=== PATIENT | female | born 1975 | race Caucasian/White ===

== ENCOUNTER 2017-01-27 08:45 | Inpatient (IN) | payer BC, MEDICAID ==
[~2017-01-27] VITALS: Ht 152.4 cm; Wt 67.2 kg
[2017-01-27] MEDS ORDERED: SODIUM CHLORIDE 0.9% 1,000 ML IV ONE (09:12)
[2017-01-27] MEDS ORDERED: ONDANSETRON HCL 4MG/2ML VIAL IV STA (09:12)
[2017-01-27 09:34] LABS: BASOPHILS % 0.4 % (0.0-2.0); EOSINOPHILS % 0.9 % (0.0-5.0); HEMATOCRIT. 37.4 % (36.0-48.0); HEMOGLOBIN. 12.3 g/dL (12.0-16.0); LYMPHOCYTES % 30.7 % (20.0-50.0); MEAN CORPUSCULAR HEMOGLOBIN 23.7 pg (28.0-32.0); MONOCYTES % 5.5 % (2.0-8.0); NEUTROPHILS % 62.5 % (40.0-76.0); PLATELET 233 x1000/uL (130-400); RED BLOOD CELL COUNT 5.19 mill/uL (4.2-5.4); RED CELL DISTRIBUTION WIDTH 18.3 % (11.6-14.6)
[2017-01-27 09:43] LABS: PARTIAL THROMBOPLASTIN TIME 22.6 sec (24.0-34.0); PROTHROMBIN TIME 10.8 sec
[2017-01-27 09:44] LABS: HCG SCREEN NEGATIVE
[2017-01-27 09:58] LABS: CARBON DIOXIDE 24 mEq/L (21-32); CHLORIDE 101 mEq/L (98-107); CREATINE KINASE 29 IU/L (26-192)
[2017-01-27] MEDS ORDERED: SODIUM CHLORIDE 0.9% 10ML VIAL ONE (10:00)
[2017-01-27] MEDS ORDERED: IOHEXOL-300 100 ML BOTTLE ONE (10:00)
[2017-01-27] MEDS ORDERED: ONDANSETRON HCL 4MG/2ML VIAL IV ONE (10:15)
[2017-01-27] MEDS ORDERED: DEXAMETHASONE 10 MG/ML VIAL IV ONE (10:15)
[2017-01-27] MEDS ORDERED: LEVETIRACETAM 500MG PREMIX 100 ML IV ONE (10:15)
[2017-01-27 10:55] LABS: CLARITY URINE CLEAR (CLEAR); COLOR URINE YELLOW (YELLOW); KETONES URINE NEGATIVE (NEGATIVE); LEUKOCYTE ESTERASE URINE NEGATIVE (NEGATIVE); NITRITE URINE NEGATIVE (NEGATIVE); OCCULT BLOOD URINE NEGATIVE (NEGATIVE); PROTEIN URINE NEGATIVE (NEGATIVE); SPECIFIC GRAVITY URINE 1.014 (1.005-1.030); UROBILINOGEN URINE 0.2 E.U./dL (0.2-1.0)
[2017-01-27] MEDS ORDERED: NICARDIPINE 50 MG in SODIUM CHLORIDE 0.9% 230 ML IV PRN (13:00)
[2017-01-27] MEDS: DEXAMETHASONE 4MG/ML 1ML VIAL IV SCH ×2 (13:35→18:26)
[2017-01-27] MEDS: DEXT 5%/LACTATED RINGERS 1,000 ML IV SCH (13:42)
[2017-01-27] MEDS ORDERED: PHENYTOIN SODIUM 100MG/2ML VIAL IV SCH (14:00)
[2017-01-27] MEDS ORDERED: IPRATROPIUM/ALBUTEROL 0.5-3(2.5)MG/3ML NEB INH PRN (14:15)
[2017-01-27] MEDS ORDERED: ACETAMINOPHEN 325MG TABLET PO PRN (14:15)
[2017-01-27] MEDS ORDERED: ONDANSETRON HCL 4MG/2ML VIAL IV PRN (14:15)
[2017-01-27 17:20] LABS: CARBON DIOXIDE 28 mEq/L (21-32); CHLORIDE 101 mEq/L (98-107)
[2017-01-27] MEDS: LEVETIRACETAM 500 MG in SODIUM CHLORIDE 0.9% 100 ML IV SCH (21:19)
[2017-01-28] MEDS: DEXAMETHASONE 4MG/ML 1ML VIAL IV SCH ×3 (00:14→11:45)
[2017-01-28 00:36] LABS: CREATINE KINASE 31 IU/L (26-192); TROPONIN I < 0.02 ng/mL (0.00-0.04)
[2017-01-28 04:58] LABS: HEMATOCRIT. 36.5 % (36.0-48.0); HEMOGLOBIN. 11.9 g/dL (12.0-16.0); LYMPHOCYTES % 9.2 % (20.0-50.0); MEAN CORPUSCULAR HEMOGLOBIN 23.6 pg (28.0-32.0); MEAN CORPUSCULAR VOLUME 72.7 fL (81.0-99.0); MEAN PLATELET VOLUME 7.7 fl (7.4-10.4); MONOCYTES % 1.3 % (2.0-8.0); NEUTROPHILS % 89.5 % (40.0-76.0); PLATELET 259 x1000/uL (130-400); RED BLOOD CELL COUNT 5.02 mill/uL (4.2-5.4); RED CELL DISTRIBUTION WIDTH 17.9 % (11.6-14.6)
[2017-01-28 05:17] LABS: CREATINE KINASE 27 IU/L (26-192); HDL CHOLESTEROL 47 mg/dL (40-59); LDL CHOLESTEROL 125 mg/dL (5-100); T4 FREE 1.03 ng/dL (0.76-1.46); TROPONIN I < 0.02 ng/mL (0.00-0.04)
[2017-01-28] MEDS: DEXT 5%/LACTATED RINGERS 1,000 ML IV SCH ×2 (06:36→22:35)
[2017-01-28] MEDS: LEVETIRACETAM 500 MG in SODIUM CHLORIDE 0.9% 100 ML IV SCH (09:05)
[2017-01-28] MEDS ORDERED: NICARDIPINE 100 MG in SODIUM CHLORIDE 0.9% 60 ML IV PRN (09:45)
[2017-01-28] MEDS: BLOOD SUGAR DIAGNOSTIC STRIP TEST SCH ×3 (11:30→20:44)
[2017-01-28] MEDS ORDERED: DEXTROSE 50% WATER 50ML SYRINGE IV PRN (11:30)
[2017-01-28] MEDS: INSULIN LISPRO 100 UNITS/ML SUBCUT SCH ×3 (11:45→21:53)
[2017-01-28] MEDS: LEVETIRACETAM 500MG TABLET PO SCH (21:37)
[2017-01-28] MEDS: FAMOTIDINE 20MG TABLET PO SCH (21:37)
[2017-01-28] MEDS: DEXAMETHASONE 4MG TABLET PO SCH (21:38)
[2017-01-29] MEDS: BLOOD SUGAR DIAGNOSTIC STRIP TEST SCH ×2 (07:01→11:56)
[2017-01-29] MEDS: INSULIN LISPRO 100 UNITS/ML SUBCUT SCH ×2 (07:08→12:05)
[2017-01-29] MEDS: LEVETIRACETAM 500MG TABLET PO SCH (08:46)
[2017-01-29] MEDS: FAMOTIDINE 20MG TABLET PO SCH (08:46)
[2017-01-29] MEDS: DEXAMETHASONE 4MG TABLET PO SCH (08:46)
[2017-01-29] MEDS ORDERED: INSULIN LISPRO 100 UNITS/ML SUBCUT ONE (12:30)
[2017-01-29] MEDS ORDERED: INSULIN LISPRO 100 UNITS/ML SUBCUT SCH (13:15)
[2017-01-29] MEDS: DEXT 5%/LACTATED RINGERS 1,000 ML IV SCH (14:00)
[2017-01-29 16:38] VITALS: BP 127/87
== END 2017-01-29 17:30 | disposition home or self-care (01) | DRG 100 ==
LOC: ER 08:46 → EDBEDREQ 10:04 → MICUSO 10:21 → EDBEDREQSVC 10:23 → EDBEDREQ 10:23 → ENRESERV 11:06 → 5WST 01-28 21:00
PROVIDERS: ADMIT Internal Medicine; ATTEND Internal Medicine
DX: G40.89 Other seizures (principal); G93.6 Cerebral edema; C79.31 Secondary malignant neoplasm of brain; J98.11 Atelectasis; E11.65 Type 2 diabetes mellitus with hyperglycemia; K42.9 Umbilical hernia without obstruction or gangrene; I11.9 Hypertensive heart disease without heart failure; K76.0 Fatty (change of) liver, not elsewhere classified; Z90.710 Acquired absence of both cervix and uterus; Z98.82 Breast implant status; Z92.21 Personal history of antineoplastic chemotherapy; Z92.3 Personal history of irradiation; Z85.3 Personal history of malignant neoplasm of breast
CPT/HCPCS: 36415; 70450; 70553; 71010; 71260; 72125; 74177; 80048; 80053; 80061; 81001; 82550; 82962; 83690; 83880; 84439; 84443; 84484; 84703; 85025; 85610; 85730; 86300; 86850; 86900; 92610; 93005; 96361; 96374; 96375; 99291; A4216; J1100; J1165; J1815; J1953; J2405; J7030; J7050; J8540; Q9967

== ENCOUNTER 2017-08-08 15:38 | Emergency (ER) | payer BC, OTHER ==
[~2017-08-08] VITALS: Ht 167.6 cm; Wt 75.0 kg
[2017-08-08 15:39] VITALS: BP 147/97
== END 2017-08-08 17:57 | disposition left against medical advice (07) ==
LOC: ER 15:53
DX: G40.909 Epilepsy, unspecified, not intractable, without status epilepticus (principal); Z53.21 Procedure and treatment not carried out due to patient leaving prior to being seen by health care provider